=== PATIENT | female | born 1955 | race African-American/Black ===

== ENCOUNTER 2021-02-27 08:56 | Outpatient (CLI) | payer MEDICARE | END 2021-02-27 08:57 | disposition home or self-care (01) | LOC: CSHMRI 08:56 | PROVIDERS: ATTEND Internal Medicine Gastroenterology | DX: K74.60 Unspecified cirrhosis of liver (principal); R16.0 Hepatomegaly, not elsewhere classified; K76.6 Portal hypertension; K80.20 Calculus of gallbladder without cholecystitis without obstruction; K82.8 Other specified diseases of gallbladder; N28.1 Cyst of kidney, acquired; K44.9 Diaphragmatic hernia without obstruction or gangrene; I51.7 Cardiomegaly | CPT/HCPCS: 74183; 82565 ==

== ENCOUNTER 2023-05-25 14:15 | Outpatient (CLI) | payer OTHER, MEDICAID | END 2023-05-25 14:16 | disposition home or self-care (01) | LOC: CSHWCC 14:15 | PROVIDERS: ATTEND Physician Assistant | DX: I87.311 Chronic venous hypertension (idiopathic) with ulcer of right lower extremity (principal); I87.322 Chronic venous hypertension (idiopathic) with inflammation of left lower extremity; L97.212 Non-pressure chronic ulcer of right calf with fat layer exposed; F10.19 Alcohol abuse with unspecified alcohol-induced disorder; Z91.148 Patient's other noncompliance with medication regimen for other reason | CPT/HCPCS: 29581; G0463; 99214 ==

== ENCOUNTER 2023-05-28 09:13 | Outpatient (CLI) | payer OTHER | END 2023-05-28 09:14 | disposition home or self-care (01) | LOC: CSHWCC 09:13 | PROVIDERS: ATTEND Physician Assistant | DX: I87.322 Chronic venous hypertension (idiopathic) with inflammation of left lower extremity (principal); I87.311 Chronic venous hypertension (idiopathic) with ulcer of right lower extremity; L97.212 Non-pressure chronic ulcer of right calf with fat layer exposed; F10.19 Alcohol abuse with unspecified alcohol-induced disorder; Z91.148 Patient's other noncompliance with medication regimen for other reason | CPT/HCPCS: 29581; 97597 ==

== ENCOUNTER 2023-06-01 12:57 | Outpatient (CLI) | payer OTHER | END 2023-06-01 12:58 | disposition home or self-care (01) | LOC: CSHWCC 12:57 | PROVIDERS: ATTEND Physician Assistant | DX: I87.311 Chronic venous hypertension (idiopathic) with ulcer of right lower extremity (principal); I87.322 Chronic venous hypertension (idiopathic) with inflammation of left lower extremity; L97.212 Non-pressure chronic ulcer of right calf with fat layer exposed; F10.19 Alcohol abuse with unspecified alcohol-induced disorder; Z91.148 Patient's other noncompliance with medication regimen for other reason | CPT/HCPCS: 29581 ==

== ENCOUNTER 2023-06-04 12:46 | Outpatient (CLI) | payer OTHER | END 2023-06-04 12:47 | disposition home or self-care (01) | LOC: CSHWCC 12:46 | PROVIDERS: ATTEND Nurse Practitioner Family | DX: I87.311 Chronic venous hypertension (idiopathic) with ulcer of right lower extremity (principal); I87.322 Chronic venous hypertension (idiopathic) with inflammation of left lower extremity; L97.212 Non-pressure chronic ulcer of right calf with fat layer exposed; F10.19 Alcohol abuse with unspecified alcohol-induced disorder; Z91.148 Patient's other noncompliance with medication regimen for other reason | CPT/HCPCS: 29581 ==

== ENCOUNTER 2023-06-08 08:21 | Outpatient (CLI) | payer OTHER | END 2023-06-08 08:22 | disposition home or self-care (01) | LOC: CSHWCC 08:21 | PROVIDERS: ATTEND Nurse Practitioner Family | DX: I87.311 Chronic venous hypertension (idiopathic) with ulcer of right lower extremity (principal); I87.322 Chronic venous hypertension (idiopathic) with inflammation of left lower extremity; L97.212 Non-pressure chronic ulcer of right calf with fat layer exposed; F10.19 Alcohol abuse with unspecified alcohol-induced disorder; Z91.148 Patient's other noncompliance with medication regimen for other reason | CPT/HCPCS: 11042; 29581 ==

== ENCOUNTER 2023-06-15 11:37 | Outpatient (CLI) | payer OTHER | END 2023-06-15 11:38 | disposition home or self-care (01) | LOC: CSHWCC 11:37 | PROVIDERS: ATTEND Nurse Practitioner Family | DX: I87.311 Chronic venous hypertension (idiopathic) with ulcer of right lower extremity (principal); I87.322 Chronic venous hypertension (idiopathic) with inflammation of left lower extremity; L97.212 Non-pressure chronic ulcer of right calf with fat layer exposed; F10.19 Alcohol abuse with unspecified alcohol-induced disorder; I89.0 Lymphedema, not elsewhere classified; Z91.148 Patient's other noncompliance with medication regimen for other reason | CPT/HCPCS: 29581 ==

== ENCOUNTER 2023-06-22 14:32 | Outpatient (CLI) | payer OTHER | END 2023-06-22 14:33 | disposition home or self-care (01) | LOC: CSHWCC 14:32 | PROVIDERS: ATTEND Nurse Practitioner Family | DX: I87.311 Chronic venous hypertension (idiopathic) with ulcer of right lower extremity (principal); I87.322 Chronic venous hypertension (idiopathic) with inflammation of left lower extremity; L97.212 Non-pressure chronic ulcer of right calf with fat layer exposed; F10.19 Alcohol abuse with unspecified alcohol-induced disorder; I89.0 Lymphedema, not elsewhere classified; Z91.148 Patient's other noncompliance with medication regimen for other reason | CPT/HCPCS: 29581 ==